=== PATIENT | female | born 1975 | race Hispanic/Latino ===

== ENCOUNTER → 2024-11-15 | Day surgery (SDC) | payer OTHER ==
[~2024-11-15] MED LIST: BISACODYL5 MG PO; FENTANYL CITRATE/PF 100MCG/2 ML INJ ONE; HYOSCYAMINE SULFATE 0.5 MG/ML INJ ONE; IBUPROFEN600 MG PO; LIDOCAINE HCL 2% LOCAL INJ 5 ML SDV VIAL INJ ONE; LISINOPRIL5 MG PO; MIDAZOLAM HCL 2 MG/2 ML VIAL ONE; MIRALAX17 GM PO; MOUNJARO15 MG/0.5 PO; PROPOFOL IV EMULSION 10 MG/ML 20 ML VIAL ONE
[2024-11-15] MEDS: LACTATED RINGER'S 1,000 ML ONE (08:26)
[2024-11-15 09:13] VITALS: TEMP 97.2
[2024-11-15 09:35] VITALS: BP 108/71; PULSE 81; RESP 18; O2SAT 99
== END | disposition home or self-care (01) ==
LOC: OR 07:11
PROVIDERS: ATTEND Internal Medicine Gastroenterology
DX: Z12.11 Encounter for screening for malignant neoplasm of colon (principal); K59.00 Constipation, unspecified; K64.8 Other hemorrhoids; G47.33 Obstructive sleep apnea (adult) (pediatric); N20.0 Calculus of kidney; Z01.810 Encounter for preprocedural cardiovascular examination; Z79.85 Long-term (current) use of injectable non-insulin antidiabetic drugs; Z79.1 Long term (current) use of non-steroidal anti-inflammatories (NSAID); Z79.899 Other long term (current) drug therapy; Z68.32 Body mass index [BMI] 32.0-32.9, adult; Z71.3 Dietary counseling and surveillance
CPT/HCPCS: 45378; 81025; 93005; J1980; J2003; J2250; J2704; J3010; J7121

== ENCOUNTER → 2024-11-24 | Day surgery (SDC) | payer OTHER ==
[~2024-11-24] MED LIST changes: +ETOMIDATE 40 MG/ 20ML VIAL IV ONE; -MIDAZOLAM HCL 2 MG/2 ML VIAL ONE
[2024-11-24] MEDS: LACTATED RINGER'S 1,000 ML ONE (11:29)
[2024-11-24 14:09] VITALS: BP 128/81; PULSE 87; RESP 10; TEMP 98.2; O2SAT 100
== END | disposition home or self-care (01) ==
LOC: OR 10:47
PROVIDERS: ATTEND Internal Medicine Gastroenterology
DX: Z12.11 Encounter for screening for malignant neoplasm of colon (principal); K63.5 Polyp of colon; K64.8 Other hemorrhoids; D12.9 Benign neoplasm of anus and anal canal; Z01.812 Encounter for preprocedural laboratory examination; Z01.810 Encounter for preprocedural cardiovascular examination; G47.30 Sleep apnea, unspecified; E66.01 Morbid (severe) obesity due to excess calories; Z87.442 Personal history of urinary calculi
CPT/HCPCS: 45380; 81025; J1980; J2003; J2704; J3010; J7121; 45378; 45385